=== PATIENT | female | born 1975 | race Two or more races ===

== ENCOUNTER 2021-05-17 15:18 | Emergency (ER) | payer OTHER ==
[~2021-05-17] VITALS: Ht 162.6 cm; Wt 113.4 kg
[~2021-05-17 15:18] MED LIST: IMODIUM A-D2 MG PO; PRILOSEC20 MG PO
== END 2021-05-17 18:05 | disposition home or self-care (01) ==
LOC: ER 15:18
DX: R10.11 Right upper quadrant pain (principal); R16.0 Hepatomegaly, not elsewhere classified